=== PATIENT | male | born 1960 | race Caucasian/White ===

== ENCOUNTER 2018-05-31 08:20 | Emergency (ER) | payer SELFPAY ==
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
--- NOTE | 2018-05-31 10:06 | RAD REPORT ---
EXAM DESCRIPTION: RAD - Thoracic Spine Ap/Lat - 05/31/2018 9:38 am CLINICAL HISTORY: Back pain FINDINGS: Bones are osteoporotic. Scoliosis involves the thoracolumbar spine Mild compression deformities of lower thoracic spine probably are chronic. No acute fracture is seen
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
== END 2018-05-31 10:47 | disposition home or self-care (01) ==
LOC: ER 08:20
DX: S16.1XXA Strain of muscle, fascia and tendon at neck level, initial encounter (principal); S29.012A Strain of muscle and tendon of back wall of thorax, initial encounter; V49.50XA Passenger injured in collision with unspecified motor vehicles in traffic accident, initial encounter; Z72.0 Tobacco use
CPT/HCPCS: 70450; 72040; 72070; 99284